=== PATIENT | female | born 1975 ===

== ENCOUNTER 2020-09-15 09:51 | Day surgery (SDC) | payer OTHER ==
[2020-09-12 11:47] LABS: HEMATOCRIT 35.6 % (36.0-47.0); HEMOGLOBIN 12.2 g/dL (12.0-15.5); MEAN CORPUSCULAR HEMOGLOBIN 31.7 pg (27.0-33.4); MEAN CORPUSCULAR HGB CONC 34.4 g/dL (32.0-36.0); MEAN CORPUSCULAR VOLUME 92 fl (80-97); PLATELET COUNT 342 10^3/uL (150-450); RED BLOOD COUNT 3.85 10^6/uL (3.72-5.28); WHITE BLOOD COUNT 6.3 10^3/uL (4.0-10.5)
[2020-09-12 11:56] LABS: APPEARANCE,URINE CLEAR; BILIRUBIN,URINE NEGATIVE (NEGATIVE); COLOR,URINE YELLOW; GLUCOSE, URINE NEGATIVE (NEGATIVE); KETONES,URINE NEGATIVE (NEGATIVE); LEUKOCYTE ESTERASE,URINE NEGATIVE (NEGATIVE); NITRITE,URINE NEGATIVE (NEGATIVE); PROTEIN,URINE NEGATIVE (NEGATIVE); URINE SPECIFIC GRAVITY 1.017
[~2020-09-15 09:51] MED LIST: LACTATED RINGERS 1000 ML IV PRN; LIDOCAINE 0.5% INJ-PF (5 MG/ML) 50 ML SDV SUBCUT PRN; SCOPOLAMINE HYDROBROMIDE 1.5 MG PATCH.TD72 TD PRN
[2020-09-15] MEDS ORDERED: SCOPOLAMINE HYDROBROMIDE 1.5 MG PATCH.TD72 ONE (10:11)
[2020-09-15] MEDS ORDERED: SUGAMMADEX SODIUM 200 MG/2 ML SDV IV ONE (11:20)
[2020-09-15] MEDS ORDERED: FENTANYL CITRATE INJ/PF 100 MCG/2 ML AMPUL ONE (11:20)
[2020-09-15] MEDS ORDERED: MIDAZOLAM 2 MG/2 ML INJ ONE (11:20)
[2020-09-15] MEDS ORDERED: PROPOFOL INJ 200 MG/20 ML VIAL IV ONE (11:21)
[2020-09-15] MEDS ORDERED: PROMETHAZINE HCL INJ 25 MG/1 ML VIAL IV PRN ×2 (13:08)
[2020-09-15] MEDS ORDERED: MORPHINE SULFATE 10 MG/ML INJ IV PRN (13:08)
[2020-09-15] MEDS ORDERED: FENTANYL CITRATE INJ/PF 100 MCG/2 ML AMPUL IV PRN ×3 (13:08)
[2020-09-15] MEDS ORDERED: OXYCODONE-ACETAMINOPHEN 5-325 MG TABLET PO PRN ×4 (13:08→13:25)
[2020-09-15] MEDS ORDERED: MEPERIDINE HCL/PF INJ 25 MG/1 ML DISP.SYRIN IV PRN (13:08)
[2020-09-15] MEDS ORDERED: DIPHENHYDRAMINE HCL 50 MG/ML VIAL IV PRN (13:08)
[2020-09-15] MEDS ORDERED: IBUPROFEN 800 MG TABLET PO PRN (13:25)
[2020-09-15] MEDS ORDERED: KETOROLAC TROMETHAMINE INJ/PF 30 MG/1 ML SDV IV PRN (13:25)
[2020-09-15] MEDS ORDERED: RINGERS SOLUTION,LACTATED 1,000 ML IV PRN (13:25)
--- NOTE | 2020-09-15 13:30 | Operative Report ---
Operative Report DATE OF SURGERY: 09/15/20 PREOPERATIVE DIAGNOSIS: Heavy menses and desires tubal ligation POSTOPERATIVE DIAGNOSIS: Same OPERATION: Hysteroscopy D&C NovaSure ablation as well as laparoscopic bilateral tubal cautery SURGEON: DENTON ANDREA ANESTHESIA: GA TISSUE REMOVED OR ALTERED: Uterine contents and fallopian tubes COMPLICATIONS: None ESTIMATED BLOOD LOSS: Minimal INTRAOPERATIVE FINDINGS: Some filmy pelvic adhesions otherwise normal tubes and ovaries and normal uterine cavity PROCEDURE: The patient was taken the OR and placed in supine position. Anesthesia was induced. She is placed in dorsolithotomy position using Vinod stirrups. Her abdomen perineum vagina were prepared and draped in sterile fashion. Her bladder was drained with a red rubber catheter. Sponge stick was placed in the vagina for manipulation of the uterus. An incision was made the umbilicus natural umbilical defect was identified and dilated with Karmen clamp allowing the placement of a blunt port. Laparoscopy confirmed appropriate placement. There were some filmy omental adhesions howeve r they did not obscure view of the uterus. Each tube was identified and followed out to its fimbriated end. Each tube was then cauterized at its mid isthmic portion moving back toward the uterine cornu with 5 successive bites. At the completion of the procedure the gas was allowed to escape from the abdomen. The port and laparoscope were removed at the same time. The fascia at the umbilicus was closed with 2-0 Vicryl stitch and skin closed with a running subcuticular 4-0 undyed Vicryl stitch. A Band-Aid was placed. The sponge stick was removed. A weighted speculum was placed in the vagina. The anterior lip cervix was grasped with a tenaculum. The uterus sounded to 8 cm before and after the case. Cervix was gently dilated. Endocervical curettings were obtained. Hysteroscopy was performed and revealed a normal uterine cavity. Endometrial curettings were obtained. Next the NovaSure device was placed tested and fired. Cavity length was 4 cm and the width was 4.2 cm. Power level is 92. At the end of the ablation a relook hysteroscopy showed a well ablated uterine cavity. The uterus was once again sounded 8 cm. All instruments were removed. She is placed back in supine position. She is brought out of anesthesia and taken recovery in stable condition.
--- NOTE | 2020-09-15 13:33 | Discharge Summary ---
Discharge Summary (SDC) - Discharge Final Diagnosis: Heavy menses and desires tubal ligation Date of Surgery: 09/15/20 Discharge Date: 09/15/20 Condition: Good Prescriptions: Oxycodone HCl/Acetaminophen [Percocet 5-325 mg Tablet] 1 tab PO Q4HP PRN #20 tablet PRN Reason: Ibuprofen [Motrin 800 mg Tablet] 800 mg PO Q8H PRN #30 tablet PRN Reason: Referrals: HUY HARVEY FNP-C [Primary Care Provider] - Discharge Diet: Regular Discharge Activity: Balance Activity w/Rest, Pelvic Rest, Slowly Increase Activity Home Care Assistance: None Needed Report the Following to Your Physician Immediately: Shortness of Breath, Fever over 101 Degrees
[2020-09-15] MEDS ORDERED: DEXAMETHASONE SOD PHOSPHATE INJ 4 MG/1 ML VIAL ONE (15:18)
[2020-09-15] MEDS ORDERED: DIPHENHYDRAMINE HCL 50 MG/ML VIAL ONE (15:18)
[2020-09-15] MEDS ORDERED: ONDANSETRON HCL INJ/PF 4 MG/2 ML SDV ONE (15:18)
[2020-09-15] MEDS ORDERED: SUCCINYLCHOLINE CHLORIDE INJ 200 MG/10 ML VIAL ONE (15:18)
[2020-09-15] MEDS ORDERED: METOCLOPRAMIDE HCL INJ/PF 10 MG/2 ML SDV ONE (15:18)
[2020-09-15] MEDS ORDERED: ROCURONIUM BROMIDE INJ 50 MG/5 ML VIAL IV ONE (15:18)
[2020-09-15] MEDS ORDERED: KETOROLAC TROMETHAMINE 60 MG/2 ML SDV ONE (15:18)
[2020-09-15 17:02] VITALS: BP 108/73
== END 2020-09-15 15:40 | disposition home or self-care (01) ==
LOC: OROUT 09:51
PROVIDERS: ATTEND Obstetrics & Gynecology
DX: N92.0 Excessive and frequent menstruation with regular cycle (principal); D25.0 Submucous leiomyoma of uterus; Z30.2 Encounter for sterilization; Z01.812 Encounter for preprocedural laboratory examination; Z20.822 Contact with and (suspected) exposure to COVID-19
CPT/HCPCS: 58563; 58670; 36415; 85027; 87635; 81025; 81001; 88305 ×2; J2250; J3490 ×2; J1100; J1200; J1885; J3010; J2765; J0330; J2405; J2704; C9803